=== PATIENT | male | born 1955 | race Caucasian/White ===

== ENCOUNTER 2022-01-17 08:03 | Outpatient (CLI) | payer MEDICARE, SELFPAY ==
--- NOTE | ~2022-01-17 | CT_ITS ---
EXAMINATION: CTA chest PE protocol DATE: 01/17/2022 08:41 INDICATION: Dyspnea on exertion. TECHNIQUE: Computed tomography angiography (CTA) of the chest was performed with 100 mL Omnipaque-350 intravenous contrast timed to evaluate the pulmonary arteries. Coronal maximum intensity projection 3D-reconstructions were created by the technologist. Automated exposure control and iterative reconst ruction technique were employed. The dose-length product was 579.03 mGy-cm. COMPARISON: None. FINDINGS: There is mild scarring at the lung apices. There is mild atelectasis bilaterally. A calcifi ed left lung nodule and calcified left hilar lymph nodes are consistent with old granulomatous diseas e. There are small pleural effusions. The heart size is normal. No pericardial effusion. There are co ronary artery calcifications. There is no pulmonary embolus. There is a 4.8 x 2.6 cm right paratrache al node. There is a 3.6 x 2.9 cm mass in left neck that may be a thyroid nodule or enlarged lymph nod e. Calcifications in the spleen are consistent with old granulomatous disease. There is mild splenome an. There is a benign bone island in right scapula. There are bridging endplate osteophytes at mult iple levels in the spine, consistent with diffuse idiopathic skeletal hyperostosis (DISH). There is m ild thoracic spondylosis. IMPRESSION: 1. No pulmonary embolus. 2. Enlarged right paratracheal lymph node, consistent with metastatic disease versus lymphoma. 3. Left neck mass, which may be mary metastatic disease or lymphoma or less likely a thyroid nodule. Ultrasound-guided core needle biopsy is recommended. 4. Small pleural effusions. 5. Mild splenomegaly. Reviewed, dictated and finalized at location A. IMPRESSION: 1. No pulmonary embolus. 2. Enlarged right paratracheal lymph node, consistent with metastatic disease v ersus lymphoma. 3. Left neck mass, which may be mary metastatic disease or lymphoma or less li prudencio a thyroid nodule. Ultrasound-guided core needle biopsy is recommended. 4. Small pleural effusions. 5. Mild splenomegaly.
[2022-01-17 08:36] LABS: Estimated Glomerular Filt Rate > 60
== END 2022-01-17 08:04 | disposition home or self-care (01) ==
PROVIDERS: PCP Physician Assistant; Visit Provider Physician Assistant
DX: R06.09 Other forms of dyspnea (principal); J90 Pleural effusion, not elsewhere classified; R16.1 Splenomegaly, not elsewhere classified
CPT/HCPCS: 71275; Q9967

== ENCOUNTER 2022-01-28 08:41 | Outpatient (CLI) | payer MEDICARE, SELFPAY ==
--- NOTE | 2022-01-28 | ECHO_ITS ---
Patient Info Name: Barrington Martinez Age: 66 years : 1955 Gender: Male Ht: 72 in Wt: 225 lbs BSA: 2.30 m2 HR: 65 bpm BP: 122 / 81 mmHg Technical Quality: Fair Exam Date: 01/28/2022 9:34 AM Exam Location: [facility] Patient Status: Outpatient Admit Date: 01/28/2022 Staff Ordering Physician: JahLindsay PA-C Registration Specialist: Dawit Dubon, MELANIE, RT Attending Provider: Jah, Lindsay ANDRADE Exam Type: CA echo doppler color flow Study Info Indications R06.00 - Dyspnea, unspecified Complete two-dimensional, color flow and Doppler transthoracic echocardiogram is performed. Strain analysis performed. Summary 1. Complete two-dimensional, color flow and Doppler transthoracic echocardiogram is performed. 2. Left ventricular chamber dimension is normal. 3. Left ventricular systolic function is normal, estimated at 60-65%. 4. The left ventricular diastolic function is grade I diastolic dysfunction. 5. E/e' 4 is not elevated. 6. Global longitudinal strain is normal at -19.9%. 7. There is trace mitral valve regurgitation. 8. There is mild tricuspid valve regurgitation. Left Ventricle E/e' 4 is not elevated. Global longitudinal strain is normal at -19.9%. Left ventricular chamber dimension is normal. Left ventricular systolic function is normal, estimated at 60-65%. The left ventricular diastolic function is grade I diastolic dysfunction. Right Ventricle Right ventricular systolic function is normal and with normal TAPSE 1.8 cm. Right ventricular chamber dimension is normal. Left Atria Left atrial chamber dimension is normal. Right Atria Right atrial chamber dimension is normal. Aortic Valve The aortic valve is trileaflet. There is no aortic valve stenosis. There is no aortic valve regurgitation. Pulmonic Valve There is no pulmonic regurgitation. Mitral Valve There is no mitral valve stenosis. There is trace mitral valve regurgitation. Tricuspid Valve RVSP is not calculated due to an inadequate TR jet. There is mild tricuspid valve regurgitation. Pericardium/Pleural There is no pericardial effusion. Inferior Vena Cava Normal inferior vena cava with >50% collapse upon inspiration consistent with normal right atrial pressure, 5 mmHg. Aorta The aortic root size at the sinus of Valsalva is normal. Left Ventricular Outflow Tract Name Value Normal LVOT 2D LVOT Diameter 2.0 cm LVOT Doppler LVOT Peak Gradient 4 mmHg LVOT Mean Gradient 2 mmHg LVOT VTI 19 cm LVOT VTI/AV VTI Ratio 0.8 LVOT Stroke Volume 63 ml LVOT CO 4.3 l/min LVOT CI 1.9 l/min/m2 Mitral Valve Name Value Normal MV Doppler MV Peak Grad
--- NOTE | 2022-01-28 15:48 | WPDPFTINT ---
PFT Procedure Performed PFT Procedure Performed Spirometry with Pre/Post Bronchodilator Plethysmography (Lung Vol) Diffusing Cap (DLCO) Flow Vol Loop PFT Interpretation This is a pulmonary function test with pre and post-bronchodilator spirometry, plethysmography and diffusing capacity. The test was performed and results interpreted in accordance with the 2019 and 2005 ATS/ERS Task Force guidelines respectively using the Global Lung Function Initiative-2012 reference equations. Patient demonstrated good effort and cooperation. Reproducibility criteria were met. The quality of the pre bronchodilator spirometry maneuver was Grade A and post bronchodilator spirometry maneuver was Grade A. Findings: Spirometry: The contour the inspiratory and expiratory flow tracing are normal. The pre bronchodilator FVC is 4.34 L, 94% predicted. The pre bronchodilator FEV1 is 3.16 L, 90% predicted. The pre bronchodilator FEV1: FVC ratio 73%. The post bronchodilator FVC is 4.31 L, representing 1% decrease. The post bronchodilator FEV1 is 3.36 L, representing a 6% increase. The post bronchodilator FEV1: FVC ratio 78%. Plethysmography: The total lung capacity is 6.74 L, 91% predicted. The functional residual capacity is 3.56 L, 90% predicted. The residual volume is 2.40 L, 95% predicted. Diffusion capacity: The diffusing capacity unadjusted for hemoglobin and carboxyhemoglobin is 28.9, 105% predicted. The diffusing capacity adjusted for alveolar volume is 4.78, 123% predicted. Impression: The spirometry is normal without evidence of an obstructive abnormality. There is no significant improvement after inhaling a single dose of albuterol. The lung volumes are normal. The diffusing capacity is normal. There are no prior studies for comparison
== END 2022-01-28 08:42 | disposition home or self-care (01) ==
PROVIDERS: PCP Physician Assistant; Visit Provider Physician Assistant
DX: R06.09 Other forms of dyspnea (principal)
CPT/HCPCS: 93306; 94060; 94726; 94729

== ENCOUNTER 2022-02-02 09:23 | Outpatient (CLI) | payer MEDICARE, SELFPAY ==
--- NOTE | ~2022-02-02 | US_ITS ---
EXAMINATION: US FNA w image guidance DATE: 02/02/2022 10:30 INDICATION: Left neck mass. TECHNIQUE: The procedure and its benefits and risks were discussed with the patient. Risks specifically discusse d included bleeding. The patient verbalized understanding of the risks and agreed to proceed. The nec k was prepped and draped in the usual sterile manner. 1% lidocaine was used for local anesthesia. 6 passes were made with a 25G needle into the lesion under ultrasound guidance. There were no immedia te complications. FINDINGS: Grayscale ultrasound images demonstrate needles advanced into a 3.6 cm nodule in left thyroid lobe fo r biopsy. IMPRESSION: 1. Ultrasound-guided fine needle aspiration of a left thyroid nodule. 2. I again reviewed the chest CT from 01/17/2022. The differential diagnosis for the mediastinal mass described as an enlarged lymph node also includes pericardial cyst or bronchogenic cyst. Consider ch est MRI without and with contrast to determine if this finding is cystic or solid. Reviewed, dictated and finalized at location A. IMPRESSION: 1. Ultrasound-guided fine needle aspiration of a left thyroid nodule. 2. I again reviewed the chest CT from 01/17/2022. The differential diagnosis fo r the mediastinal mass described as an enlarged lymph node also includes perica rdial cyst or bronchogenic cyst. Consider chest MRI without and with contrast t o determine if this finding is cystic or solid.
== END 2022-02-02 09:24 | disposition home or self-care (01) ==
PROVIDERS: PCP Physician Assistant; Visit Provider Physician Assistant
DX: R22.1 Localized swelling, mass and lump, neck (principal)
CPT/HCPCS: 10005; 88173; 88305

== ENCOUNTER 2022-03-22 13:30 | Outpatient (CLI) | payer MEDICARE, SELFPAY ==
--- NOTE | ~2022-03-22 | PE_ITS ---
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 11.052 mCi of 18-fluorodeoxyglucose (18-FDG) was adminis tered i.v. Low dose computed tomography (CT) images were acquired from the base of the brain to the p roximal thighs for attenuation correction and anatomic localization. Positron emission tomography (PE T) images were acquired in the same distribution beginning 53 minutes after injection. Images includi ng fused PET/CT images were reconstructed in axial, coronal, and sagittal planes. Automated exposure control technique was employed. The dose-length product was 896.07mGy-cm. COMPARISON: CT dated 01/17/2022 FINDINGS: Head/neck: There is symmetric increased activity in the oral cavity, palatine tonsils, parotid glands, submandi bular glands, laryngeal muscles and ocular muscles without CT correlate, likely physiologic. Mild inc reased FDG uptake with maximal SUV of 4.0 associated with the previously noted and recently biopsied left thyroid nodule. No pathologically enlarged cervical lymphadenopathy or suspicious foci of increa sed FDG uptake in the visualized head or neck. Chest: Tiny bilateral pleural effusions with a lateral mild dependent atelectasis. Calcified nodules in the left lung and calcified left hilar lymph nodes consistent with old granulomatous disease. Heart size is normal. Atherosclerotic coronary artery calcifications. Thoracic aorta is normal in caliber. There is a 4.6 x 2.5 cm loculated fluid collection with simple fluid attenuation situated between the post erior margin of the superior vena cava and the anterior margin of the lower trachea which corresponds to a less dense suspected to represent a lymph node. The fluid collection is now more clearly visual ized with more apparent low attenuation in the absence of the dense streak artifact present on the pr ior postcontrast study. The fluid collection extends along the right and posterior margin of the aort ic root suggesting pericardial fluid within a superior pericardial recess. This is further supported by an additional small amount of pericardial fluid within a more anterior pericardial recess which is better appreciated on the prior study extending along the anterior margin of the aortic root and keily ng the cephalad margin of the main pulmonary artery. No evident solid enhancing soft tissue component evident on the prior study or appreciable FDG activity in the current study to suggest neoplasm. No pathologically enlarged or FDG avid thoracic lymphadenopathy. Abdomen/pelvis/proximal thighs: Physiologic renal accumulation and excretion of FDG activity in the kidneys, bladder and along portio ns of ureters. Normal degree and heterogenous pattern of increased uptake throughout the liver withou t radiologic correlate or dominant FDG avid lesion. A few splenic calcifications consistent with old granulomatous disease. The gallbladder, pancreas, spleen and bilateral adrenal glands are normal. Mil d to moderate uptake scattered throughout the bowels without radiologic correlate, also likely physio logic. There is also diffuse uptake extending along a line of sutures along the deep margin of the ri ght inguinal canal likely reflecting postoperative change related to prior inguinal hernia repair. No more nodular associated soft tissue component to suggest malignancy. No other abnormal foci of incre ased FDG uptake or pathologically enlarged lymphadenopathy in the abdomen, pelvis or proximal thighs. Musculoskeletal: Moderate to severe spondylosis in the thoracic and lumbar spine. No suspicious lytic, blastic or FDG avid bone lesions. Increased uptake at the thenar muscles of the lateral hands, right greater than le ft which is likely physiologic. IMPRESSION: 1. The right paratracheal lesion of concern previously susp
[2022-03-22 13:50] LABS: Glucose Point of Care 83 mg/dl (65-105)
== END 2022-03-22 13:31 | disposition home or self-care (01) ==
LOC: ANHIMG 13:32
PROVIDERS: PCP Physician Assistant; Visit Provider Physician Assistant
DX: R22.2 Localized swelling, mass and lump, trunk (principal); D38.3 Neoplasm of uncertain behavior of mediastinum
CPT/HCPCS: 78815; A9552

== ENCOUNTER 2022-04-15 12:15 | Outpatient (CLI) | payer MEDICARE, SELFPAY ==
--- NOTE | ~2022-04-15 | US_ITS ---
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 TECHNIQUE: A time-out was performed to verify the patient's name, date of , and procedure to be performed . The procedure and its benefits and risks were discussed with the patient. Risks specifically discus sed included bleeding and infection. The patient understood the risks and agreed to proceed. The neck was prepped and draped in the usual sterile manner. 3 mL 1% lidocaine was used for local anesthesia . 6 passes were made with a 25G needle into the lesion. Appropriate needle location was documented with continuous sonographic guidance. A sterile bandage was applied. There were no immediate compli cations. FINDINGS: Grayscale ultrasound images demonstrate biopsy needles advanced into a 3.6 cm solid hypoechoic left t hyroid nodule. IMPRESSION: 1. Successful ultrasound-guided fine needle aspiration of the 3.6 cm left thyroid nodule of concern. Reviewed, dictated and finalized at location A. STEWARD IMPRESSION: 1. Successful ultrasound-guided fine needle aspiration of the 3.6 cm left thyr oid nodule of concern.
== END 2022-04-15 12:16 | disposition home or self-care (01) ==
PROVIDERS: PCP Physician Assistant; Visit Provider Physician Assistant
DX: E04.9 Nontoxic goiter, unspecified (principal)
CPT/HCPCS: 10005; 88173; 88305

== ENCOUNTER 2023-06-21 02:02 | Day surgery (SDC) | payer MEDICARE, SELFPAY ==
[2023-05-30 10:41] VITALS: BMI 29.9
--- NOTE | 2023-06-19 10:32 | PC.NURSE ---
Patient called regarding upcoming procedure. Reviewed preop instructions, appointment times, and procedure prep.
[2023-06-21 07:31] VITALS: BP 110/67; PULSE 100; RESP 16; TEMP 36.2; O2SAT 98
[2023-06-21] MEDS: LACTATED RINGERS 1,000 ML 150 ML IV CONT (07:41)
--- NOTE | 2023-06-21 07:43 | P.PNAN_ITS ---
Anes - Initial Pre Proc Eval Procedure: Operation Date: 06/21/23 08:30 Proposed Procedures p Colonoscopy - Jorge Coulter MD Date/Time: 06/21/23 07:43 Surgeon: Jorge Coulter MD Pre Op Diagnosis: Family History of Colon Cancer Patient Data Age: 68 Gender: M Height: 1.83 m Weight: 96.8 kg Last Vital Signs Temp 36.2 C L 06/21/23 07:31 Pulse 100 06/21/23 07:31 Resp 16 06/21/23 07:31 BP 110/67 06/21/23 07:31 Pulse Ox 98 06/21/23 07:31 O2 Del Method Room Air 06/21/23 07:31 Allergies Allergy/AdvReac Type Severity Reaction Status Date / Time No Known Allergies Allergy Verified 06/21/23 07:29 Home Medications Medication Instructions Recorded Confirmed Type doxazosin 8 mg tablet See Rx Instructions .Route 11/27/19 06/21/23 Rx .COMPLEX #90 tabs Patient hx anesthesia problems: none Family hx anesthesia problems: none Results Review: All pre-operative results and documents have been reviewed as part of the pre- operative evaluation. [facility] Past Medical History Medical History (Updated 06/21/23 @ 07:43 by Abbe Jones MD) Hyperlipidemia Family History Family History Father Carcinoma of colon Social History Social History Smoking status: Never smoker Smoking end date: 04/24/71 Alcohol intake: never Living arrangements: with family Spiritual care concerns: No Anes - Eval Final PreProcedure Day of Procedure 06/21/23 07:43 Patient weight: overweight Heart: regular rate and rhythm Lungs: clear to auscultation Airway: Mallampati scale class II Neurological: alert and oriented Last oral intake: >/= 8 hours ASA classification: II Emergent: no Anesthetic plan: proceed Anesthesia type and monitoring: general GIVS and standard monitoring Results Review: All pre-operative results and documents have been reviewed as part of the pre- operative evaluation. Informed Consent: The patient's anesthetic plan and its attendant risks and benefits were discussed with the patient/family/POA. Questions were solicited and answers provided to the satisfaction of the patient/family/POA.
[2023-06-21] MEDS: SIMETHICONE ORAL SUSPENSION 20 MG/0.3 ML 30 ML BOTTLE 0.6 ML IRRIGATION (08:32)
[2023-06-21 08:39] VITALS: BP 112/71; PULSE 78; RESP 22; O2SAT 97
[2023-06-21 08:49] VITALS: BP 115/71; PULSE 73; RESP 18; O2SAT 97
[2023-06-21 08:57] VITALS: BP 117/73; PULSE 72; RESP 19; O2SAT 98
--- NOTE | 2023-06-22 14:13 | PM.HPGS ---
History of Present Illness History of Present Illness Consent: Risks, benefits, and alternatives have been discussed and questions answered. Patient agrees to proceed with procedure. Chief complaint: Family History of Colon Cancer Narrative: Barrington Martinez is a 68 year old male referred for colon cancer screening. He has a family history of colon cancer. Review of Systems Review of Systems: All systems reviewed & are unremarkable except as noted in HPI and below PMFSH Past Medical History Medical History Hyperlipidemia Family History Family History Father Carcinoma of colon Social History Social History Smoking status: Never smoker Smoking end date: 04/24/71 Alcohol intake: never Living arrangements: with family Spiritual care concerns: No Meds Home Medications and Allergies Home Medications Medication Instructions Recorded Confirmed Type doxazosin 8 mg tablet See Rx Instructions .Route 11/27/19 06/21/23 Rx .COMPLEX #90 tabs Allergies Allergy/AdvReac Type Severity Reaction Status Date / Time No Known Allergies Allergy Verified 06/21/23 07:29 Exam Const: General: alert Orientation/consciousness: patient oriented x3 Resp: Auscultation: clear to auscultation bilaterally Cardio: Rhythm: regular rhythm GI: GI Palp: Yes Soft to palpation and No Tenderness to palpation present (GI) Neuro: General: patient oriented x3 Assessment and Plan Assessment and plan (1) Family history of colon cancer: Code(s): Z80.0 - Family history of malignant neoplasm of digestive organs Status: Acute Assessment and Plan: Colonoscopy with possible biopsy or polypectomy or cautery or injection of substances.
== END 2023-06-21 09:06 | disposition home or self-care (01) ==
PROVIDERS: PCP Physician Assistant; Visit Provider Internal Medicine Gastroenterology
PROC: 0DJD8ZZ Inspection of Lower Intestinal Tract, Via Natural or Artificial Opening Endoscopic (ICD-10-PCS; CPT 45378; principal; 2023-06-21 08:30)
DX: Z12.11 Encounter for screening for malignant neoplasm of colon (principal); Z80.0 Family history of malignant neoplasm of digestive organs; K64.8 Other hemorrhoids; E78.5 Hyperlipidemia, unspecified
CPT/HCPCS: G0105; J2704; J7120

== ENCOUNTER 2024-09-26 07:30 | Outpatient (CLI) | payer MEDICARE, SELFPAY ==
--- NOTE | 2024-09-26 | EST_ITS ---
Patient Info Name: Barrington Martinez Age: 69 years : 1955 Gender: Male Ht: 72 in Wt: 215 lbs BSA: 2.25 m2 Exam Date: 09/26/2024 7:50 AM Patient Status: O Admit Date: 09/26/2024 Exam Type: CA stress devendra w NM A regadenoson stress test was performed. Staff Referring Physician: Lindsay Tyson Attending Provider: Lindsay Tyson Exercise Technologist: Giuliana Castro Exercise Physician: Kishan Musa DO Summary 1. 1. Negative lexiscan stress test for ischemic ST changes by ECG criteria. 2. 2. Stable hemodynamics throughout the test. 3. 3. Nuclear scan to follow and will be reported separately. Please correlate with it. 4. 4. Patient informed of the above results. Protocol: Lexiscan Stress ECG Details Stage: REST Duration (min): 1 min : 29 sec HR (bpm): 55 SBP (mmHg): 112 DBP (mmHg): 71 Stage: REST Duration (min): 5 min : 2 sec HR (bpm): 56 SBP (mmHg): 112 DBP (mmHg): 71 Stage: STAGE 1 Duration (min): 1 min : 0 sec HR (bpm): 62 SBP (mmHg): 131 DBP (mmHg): 71 Stage: RECOVERY Duration (min): 1 min : 0 sec HR (bpm): 90 SBP (mmHg): 114 DBP (mmHg): 53 Stage: RECOVERY Duration (min): 2 min : 0 sec HR (bpm): 88 SBP (mmHg): 114 DBP (mmHg): 53 Stage: RECOVERY Duration (min): 3 min : 0 sec HR (bpm): 83 SBP (mmHg): 114 DBP (mmHg): 55 Stage: RECOVERY Duration (min): 3 min : 2 sec HR (bpm): 83 SBP (mmHg): 114 DBP (mmHg): 55 Rest HR: 56 bpm Peak HR: 93 bpm Rest Sys BP: 112 mmHg Peak Sys BP: 131 mmHg Max Pred HR: 149 bpm % Max Pred HR: 62 % Target HR: 127 bpm Max RPP: 12,183 bpm*mmHg Termination Reason: Completed protocol Cardiac Symptoms: None Total Time: 1 min : 0 sec Rest Jefferson BP: 71 mmHg Peak Jefferson BP: 71 mmHg Total Dose: 0.4 mg Resting ECG Sinus bradycardia. Stress ECG No ST changes. Arrhythmias None. Report Signatures
--- NOTE | ~2024-09-26 | NM_ITS ---
EXAMINATION: NM devendra stress w perfusion DATE: 09/26/2024 10:03 INDICATION: Dyspnea on exertion TECHNIQUE: Rest images were obtained following intravenous administration of 10.8 mCi Tc99m tetrofosm in (Myoview). The patient was infused intravenously with Lexiscan (Regadenoson). Then, 31.7 mCi Tc99m tetrofosmin (Myoview) was administered intravenously, and stress images were obtained. Data was trupti nstructed into short axis and horizontal and vertical long axis SPECT images. Gated SPECT images were also obtained. COMPARISON: None. FINDINGS: There is no definite reversible or fixed perfusion abnormality to suggest ischemia or infar ction. There is normal left ventricular chamber size, wall motion and ejection fraction. Left ventr icular ejection fraction measures 67%. IMPRESSION: 1. Normal myocardial perfusion at rest and during stress. 2. Left ventricular ejection fraction measuring 67%. Reviewed, dictated and finalized at location A.
--- OUTSIDE RECORDS SUMMARY | 2024-09-26 07:33 | XMS_ITS | Encounter Summary ---
Author Organization [facility] Address [address] [place] [address] Care Team Providers Care Water Resource Project Manager Name Role Phone Lindsay Matute Primary Care Pr ovider Encounter Details Date Type Department Care Team (Late Contact Info) Description 12/02/2020 Ophth Exam [facility] [address] [place] [address] [phone] Marybel Amador MD [address] [place] [address] [place] [address] Social History Tobacco Use Types Packs/Day Years Used Date Smoking Tobacco: Never Smokeless Tobacco: Never Alcohol Use Standard Drinks/Week Comments Not Currently 0 (1 standard drink = 0.6 oz pur e alcohol) Sex and Gender Information Value Date Recorded Sex Assigned at Not on file Legal Sex Male 11:39 AM CDT Gender Identity Not on file Sexual Orientation Not on file documented as of this encounter Plan of Treatment Upcoming Encounters Date Type Department Care Team (Late Contact Info) Description 12/04/2024 8:40 AM CDT Office Visit [facility] - [facility]hthalmology [address] [place] [address] [phone] Azael Ceballos MD [address] [place] [phone] 06/16/2025 9:00 AM EXTRUDING PRESS ADJUSTER Office Visit [facility] [place] [address] Marybel Amador MD [facility] [facility] [place] [address] documented as of this encounter Visit Diagnoses Not on filedocumented in this encounter Care Teams Water Resource Project Manager Relationship Specialty Start Date End Date Lindsay Matute PA [address] [place] [address] PCP - General Physician Files Supervisor 12/02/20 documented as of this encounter
--- OUTSIDE RECORDS SUMMARY | 2024-09-26 07:33 | XMS_ITS | Referral Summary ---
Author Organization [facility] [place] [address] [facility] [address] [place] [address] Care Team Providers Care Retail Service Representative Name Role Phone Lindsay Tyson Primary Care Pr ovider Allergies No known active allergies Medications No known medications Active Problems No known active problems Social History Tobacco Use Types Packs/Day Years Used Date Smoking Tobacco: Never Assessed Sex and Gender Information Value Date Recorded Sex Assigned at Not on file Legal Sex Male 1:15 AM PAINT MAKER Gender Identity Not on file Sexual Orientation Not on file Last Filed Vital Signs Vital Sign Reading Time Taken Comments Blood Pressure 120/72 05/04/2023 9:06 AM PAINT MAKER Pulse 80 05/04/2023 9:06 AM PAINT MAKER Temperature 36.3 C (97.4 F) 05/04/2023 9:06 AM PAINT MAKER Respiratory Rate 21 05/04/2023 9:06 AM PAINT MAKER Oxygen Saturation 96% 05/04/2023 9:06 AM PAINT MAKER Inhaled Oxygen Concentration - - Weight 104.3 kg (230 lb) 05/04/2023 9:06 AM PAINT MAKER Height 182.9 cm (6') 07/23/2022 2:07 PM CDT Body Mass Index 31.19 07/23/2022 2:07 PM CDT Plan of Treatment Not on file Insurance [employer] MEDICARE Care Teams Retail Service Representative Relationship Specialty Start Date End Date Lindsay Tyson PA PCP - General Physician Assistant Import Manager 05/28/20
--- OUTSIDE RECORDS SUMMARY | 2024-09-26 07:33 | XMS_ITS | Encounter Summary ---
Author Organization [facility] Address [address] [place] [address] Care Team Providers Care Garbage Man Name Role Phone Lindsay Matute Primary Care Pr ovider Encounter Details Date Type Department Care Team (Late Contact Info) Description 12/02/2020 Evaluation Visit [facility] [address] [place] [address] [phone] Aric Caicedo MD [address] [place] [address] [place] [address] Right retinal detachment Social History Tobacco Use Types Packs/Day Years [...] Office Visit [facility] - [facility]hthalmology [address] [place] [address] [phone] Azael Ceballos MD [address] [place] [phone] 06/16/2025 9:00 AM JIGMAN Office Visit [facility] [place] [phone] Marybel Amador MD [address] [place] [address] [place] [phone] Scheduled Orders Name Type Priority Associated Diagnoses Orde r Schedule OPH OCT TEST U Ophthalmology Routine Right retinal detachment Ordered: 12/02/2020 documented as of this encounter Visit Diagnoses Diagnosis Right retinal detachment- Primary Unspecified retinal detachment documented in this encounter Care Teams Garbage Man Relationship Specialty Start Date End Date Lindsay Matute PA [address] [place] [phone] PCP - General Physician Steward/Stewardess Second Class 12/02/20 documented as of this encounter
--- OUTSIDE RECORDS SUMMARY | 2024-09-26 07:33 | XMS_ITS | Clinical Summary ---
Author Organization [facility] [address] Address [address] [place] [address] Care Team Providers Care Net Sql Developer Name Role Phone Lindsay Tyson Primary Care Pr ovider Allergies No known active allergies Medications No known medications Active Problems No known active problems Family History Medical History Relation Name Comments Colon cancer Father Colon cancer - (Added by TW Conv) Relation Name Status Comments Father Social History Tobacco Use Types Packs/Day Years Used Date Smoking Tobacco: Never Assessed Sex and Gender Information Value Date Recorded Sex Assigned at Not on file Legal Sex 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 Gender Identity Not on file Sexual Orientation Not on file Obstetrics History Last Filed Vital Signs Vital Sign Reading Time Taken Comments Blood Pressure 120/72 05/04/2023 9:06 AM CASING WRINGER OPERATOR Pulse 80 05/04/2023 9:06 AM CASING WRINGER OPERATOR Temperature 36.3 C (97.4 F) 05/04/2023 9:06 AM CASING WRINGER OPERATOR Respiratory Rate 21 05/04/2023 9:06 AM CASING WRINGER OPERATOR Oxygen Saturation 96% 05/04/2023 9:06 AM CASING WRINGER OPERATOR Inhaled Oxygen Concentration - - Weight 104.3 kg (230 lb) 05/04/2023 9:06 AM CASING WRINGER OPERATOR Height 182.9 cm (6') 07/23/2022 2:07 PM CDT Body Mass Index 31.19 07/23/2022 2:07 PM CDT Plan of Treatment Health Maintenance Due Date Last Done Comments Colon Cancer Screening-Colonoscopy 1955 Depression Screening 1953 Fall Risk Assessment 1955 Hepatitis C Screening 1953 Hepatitis B Screening 1971 Pneumococcal vaccine 65+ (1 of 1 - PCV) 2003 Zoster Vaccine (1 of 2) 2003 Abdominal Aortic Aneurysm (A AA) Screen 2018 Well Visit 65+ 2018 DTaP/Tdap/Td Vaccine (2 - Td or Tdap) 12/05/2024 Influenza Vaccine (Season Ended) 2024 02/16/2018, 02/20/2016, 02/20/2015 Insurance AETNA MEDICARE Care Teams Net Sql Developer Relationship Specialty Start Date End Date Lindsay Tyson PA PCP - General Physician Director Volunteer Services 05/28/20
--- OUTSIDE RECORDS SUMMARY | 2024-09-26 07:33 | XMS_ITS | Clinical Summary ---
Author Organization [facility] Address [address] [place] [address] Care Team Providers Care Information Systems Director Name Role Phone Lindsay Matute Primary Care Pr ovider Source Comments [facility],non-owned Affiliates and Associated Physician Practices is amultiple site organization consisting of ambulatory clinics and hospital sitesin [place], [place] and [place]. This disclosure is being madepursuant to the Care Everywhere program and may not contain all information available regarding this patient. Last updated 18.[facility] Allergies No known active allergies Medications * Be aware that medications may not be up to date on this document. Alwaysverify current medications with the patient. doxazosin (CARDURA) 8 MG tablet Take 1 (one) tablet by mouth once daily 09/17/2020 Active finasteride (Proscar) 5 MG tablet Take 1 (one) tablet by mouth once daily 05/16/2024 Active dorzolamide-angeliac olol (Cosopt) 2-0.5 % ophthalmic solution Instill 1 (one) drop into right eye 2 times daily 30 mL 4 06/10/2024 Active Active Problems Problem Noted Date Diagnosed Date Secondary open-angle glaucoma, moderate stage, r ight 04/07/2023 Overview (04/07/2023): Patient with history of multiple retina procedures including silicone oil with observation of elevated intraocular pressure with silicone oil entering the anterior chamber the right eye. Intraocular pressure has decreased significantly after silicone oil removal but still higher than the left eye despite medications on the right. Visual field changes and OCT could suggest moderate glaucoma damage versus changes from retinal detachment and prior surgeries and we are assigning a presumptive diagnosis of moderate damage at baseline. Gonioscopy both eyes shows wide open angle with 1-2+ trabecular meshwork pigmentation. There is visible residual microscopic silicone oil bubbles in the superior angle of the right eye which could be causing continued obstruction of outflow on a microscopic level. Nonetheless, the patient may benefit from laser trabeculoplasty to reduce intraocular pressure further especially with patient with difficult adherence to multiple medications frequently throughout the day. 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 Status post eye surgery Family History Medical History Relation Name Comments Cancer - Colon Father Relation Name Status Comments Father Social History [...] Sign Reading Time Taken Comments Blood Pressure 105/78 01/14/2021 1:05 PM CDT Pulse 72 01/14/2021 1:05 PM CDT Temperature 36.1 C (97 F) 01/14/2021 1:05 PM CDT Respiratory Rate 18 01/14/2021 1:05 PM CDT Oxygen Saturation 100% 01/14/2021 1:05 PM CDT Inhaled Oxygen Concentration - - Weight 102.5 kg (226 lb) 01/14/2021 9:06 AM CDT Height 182.9 cm (6') 01/14/2021 9:06 AM CDT Body Mass Index 30.65 01/14/2021 9:06 AM CDT Plan of Treatment Upcoming Encounters Date Type Department Care Team (Late st Contact Info) Description 12/04/2024 8:40 AM CDT Office Visit [facility] - Ophthalmology [address] [place] [phone] Azael Ceballos MD [address] [place] [phone] 06/16/2025 9:00 AM WOOD FENCE INSTALLER Office Visit [facility] - Ophthalmology [address] [place] [phone] Marybel Amador MD [address] [place] [address] [place] [phone] Health Maintenance Due Date Last Done Comments COLOGUARD (AGES 45-75) - COL ON CA SCREENING 1953 COLON MONITORING 1953 COLONOSCOPY - COLON CA SCREENING 1953 CT COLONOGRAPHY - COLON CA SCREENING 1953 Colorectal Cancer Screening 1953 FIT - COLON CA SCREENING 1953 FLEX SIG - COLON CA SCREENING 1953 LIPID TESTING 1953 HEPATITIS C SCREENING 04/24/1971 DTAP/TDAP/TD VACCINES (1 - Tdap) 1972 PNEUMOCOCCAL VACCINE 50+ (1 of 1 - PCV) 2003 ZOSTER VACCINE (1 of 2) 2003 COVID-19 VACCINE ( - 2023-2 5 season) 2023 DEPRESSION SCREENING 04/24/2024 MEDICARE AWV CALENDAR YEAR 2024 INFLUENZA VACCINE (Season Ended) 2024 Respiratory Syncytial Virus (RSV) Vaccine Pt: or over 60 yrs (1 - 1-dose 75+ series) 2028 HEPATITIS B VACCINE Aged Out No longe r eligible based on patient's age to complete this topic HIB VACCINE Aged Out No longer eligi ble based on patient's age to complete this topic HPV VACCINE Aged Out No longer eligi ble based on patient's age to complete this topic MENINGOCOCCAL (Group B) VACC INE SHARED DECISION-MAKING Aged Out No longer eligibl e based on patient's age to complete this topic MENINGOCOCCAL GROUPS A/C/Y/W VACCINE Aged Out No longer eligible b ased on patient's age to complete this topic Medical Devices Implanted Type Area Dockmaster Device Identifier Shelf Expiration Date Model / Serial / Lot Lens Iol 0 D +16.5 Mingo Mod L Bcnvx - [id number] Implanted:Qty: 1 on 12/22/2020 by Greg Tim MD at [facility] Right: Eye RunTitle 02/11/2025 [id number] / [id number] / Strip Sclr 4mm Chelsy Strl Implanted:Qty: 1 on 12/24/2020 by Marybel Amador MD at [facility] Right: Eye [employer] 12/22/2024 92-10 / / [id number] Slv Rtnl 70mm 2.1mm 1mm Chelsy Rnd Strl Implanted:Qty: 1 on 12/24/2020 by Marybel Amador MD at [facility] Right: Eye [employer] 06/21/2024 92-13 / / [id number] Insurance AETNA [facility] Care Address: [facility] [id number] [place] [phone] AETNA MEDICARE ADV AETNA Care Teams Information Systems Director Relationship Specialty Start Date End Date Lindsay Matute PA [address] [place] [address] PCP - General Physician Demand Planning Manager 12/02/20
--- OUTSIDE RECORDS SUMMARY | 2024-09-26 07:33 | XMS_ITS | Data Portability ---
Author Organization [facility] [facility], Main Office Address [address] [place] [address] Assessment No assessment recorded. Plan of Treatment Reminders Order Date Submit Date Provider Last Modified By Organization Details Last Modified Time Details Appointments None recorded. Lab PSA, serum or plasma 2022 023 [email or web address] Not available 16:21:58 CBC w/ auto diff 2022 023 [email or web address] Not available 16:21:25 hepatic function panel, serum 2022 023 [email or web address] Not available 16:21:34 BMP, serum or plasma 2022 023 [email or web address] Not available 16:21:45 TSH + free T4, serum 2022 023 RIOS Not available 16:13:42 lipid panel, serum 2022 023 [email or web address] Not available 16:21:15 urinalysis, complete 2022 023 [email or web address] Not available 16:22:08 Referral None recorded. Procedures colonoscopy screening (PROC) 2022 023 [email or web address] [facility], [address], [address], [place], [address], 10:54:22 Surgeries None recorded. Imaging None recorded. Medication Orders doxazosin 8 mg tablet 2022 023 [id number], [address] [place], [place], [phone], 15:20:05 Patient TargetsNo targets recorded. Patient InstructionsNo instructions recorded. Reason for Referral None Reported. Results Created Date Observation Date Name Description Value Unit Range Abnormal Flag Note LastModifiedBy Organization Detail LastModifiedTime 01/19/20 22 01/17/2022 CT, angio gram, chest , w/ contr ast No observ ation record ed. MIGRATION. [address] [place] [address] (Imaging) [address] [place] [address], [phone], 06/22/2022 21:33:52 02/03/20 22 02/02/2022 ultra sound guide d core biops y (PROC ) No observ ation record ed. MIGRATION. [address] [place] [address] ([facility]) [address] [place] [address], [phone], 06/22/2022 21:33:52 02/04/20 22 01/28/2022 compl ete PFT w/ post [facility] hodil ator orin metry * No observ ation record ed. MIGRATION. [address] [place] [address] [facility] [place] [address] [place], [address], 06/22/2022 21:33:52 02/08/20 22 01/28/2022 , [facility] ardio gram, trans thora cic, compl ete, w/ color flow No observ ation record ed. MIGRATION. [address] [place] [address], [address], 06/22/2022 21:33:52 02/12/20 22 02/02/2022 ultra sound guide d core biops y (PROC ) No observ ation record ed. MIGRATION. [address] [place] [address] (Imaging) [address] [place] [address], [phone], 06/22/2022 21:33:52 04/04/20 22 03/22/2022 PET-C T, skull base to mid-t high scan No observ ation record ed. [email or web address].[id number] [facility] (Imaging) [address], [place], [address], 06/22/2022 21:33:52 04/19/20 22 04/15/2022 ultra sound guide d core biops y (PROC ) No observ ation record ed. [email or web address].[id number] [facility] (Imaging) [address], [place], [address], 06/22/2022 21:33:52 Result Notes None recorded. Problems Name Problem SNOMED Code Status Onset Date Resolution Date Notes Provider Name and Address Organization Details Recorded Time Nocturia 270732845 Active 2021 Not Available [facility] 3 21:31:55 Acquired bronchogen ic cyst 6717888615776 02 Active 2021 Not Available [facility] 3 21:31:56 Diabetes mellitus screening Active 2021 Not Available [facility] 3 21:31:56 Mass of thyroid gland 186162808 Active 2021 Not Available [facility] 3 21:31:56 Long-term drug therapy Active 2021 Not Available [facility] 3 21:31:56 Mass of neck 007408884 Active 2021 Not Available [facility] 3 21:31:56 Screening for malignant neoplasm of prostate Active 2021 Not Available [facility] 3 21:31:56 Hyperlipid emia 44788080 Active 2021 MATTHEW Gutierrez null, [place] - [facility] 3 12:20:25 Dyspnea on exertion 13357558 Active 2021 Not Available [facility] 3 21:31:57 Mediastina l mass 67863456 Active 2021 Not Available [facility] 3 21:31:57 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 Procedures Surgical History Date Name Laterality Status Provider Name and Address Organization Details Recorded Time Colonoscopy completed Not Available [facility] 06/23/19 23 21:30:41 stapedectomy completed Not Available [facility] 06/22/2022 21:30:41 hernia repair completed Not Available [facility] th 06/22/2022 21:30:41 Imaging Results None recorded. Procedure Notes None recorded. Medical Equipment None Reported. Allergies No known drug allergies Medications Name Sig Start Date Stop Date Status Note LastModified by Organization Details LastModified Time amoxicillin 500 mg capsule TAKE 1 CAPSULE BY MOUTH THREE TIMES DAILY UNTIL ALL TAKEN 06/22 completed Not Available Not Available Not Available azithromycin 250 mg tablet TAKE 2 TABLETS BY MOUTH FOR 1 DAY THEN TAKE 1 TABLET BY MOUTH DAILY FOR 4 DAYS 01/27 completed Not Available Not Available Not Available prednisone 20 mg tablet 01/27 completed Not Available Not Available Not Available acetazolamid e 250 mg tablet TAKE 1 TABLET BY MOUTH THREE TIMES DAILY 01/05 completed Not Available Not Available Not Available peg-electrol yte solution 420 gram oral solution MIX AND DRINK UTD 05/08 completed Not Available Not Available Not Available ketorolac 0.5 % eye drops INSTILL 1 DROP IN RIGHT EYE THREE TIMES DAILY 01/05 completed Not Available Not Available Not Available doxazosin 8 mg tablet TAKE 1 TABLET BY MOUTH EVERY DAY active Not Available Not Available No t Available prednisolone acetate 1 % eye drops,suspen tuan SHAKE LIQUID AND INSTILL 1 DROP IN RIGHT EYE FOUR TIMES DAILY 01/05 completed Not Available Not Available Not Available dorzolamide 22.3 mg-timolol 6.8 mg/mL eye drops INSTILL 1 DROP IN RIGHT EYE TWICE DAILY active Not Available Not Available No t Available finasteride 5 mg tablet TK 1 T PO QD 05/08 completed Not Available Not Available Not Available Vitals Date Recorded Body mass index (BMI) Body height Oxygen saturation Oxygen saturation in Arterial blood by Pulse oximetry Heart rate Respiratory rate Body temperature Body weight Systolic blood pressure Diastolic blood pressure Provider Name and Address Organization Details Last Updated DateTime 2 32.2 kg/m2 182.88 cm 97.03 % 97.03 % 96 /min 16 /min 97.7 [degF] 494962. 11 g 110 mm[Hg] 70 mm[Hg] Not Available [facility] 3 21:31:37 Date Recorded Body height Oxygen saturation Oxygen saturation in Arterial blood by Pulse oximetry Heart rate Respiratory rate Body temperature Body weight Systolic blood pressure Diastolic blood pressure Provider Name and Address Organization Details Last Updated DateTime 2 182.88 cm 97 % 97 % 83 /min 18 /min 97.3 [degF] 154198. 91 g 118 mm[Hg] 68 mm[Hg] Not Available [facility] 3 21:31:37 Date Recorded Body weight Body mass index (BMI) Body height Body temperature Heart rate Oxygen saturation Oxygen saturation in Arterial blood by Pulse oximetry Systolic blood pressure Diastolic blood pressure Provider Name and Address Organization Details Last Updated DateTime 3 000150. 25 g 31.2 kg/m2 182.88 cm 97.4 [degF] 84 /min 97 % 97 % 118 mm[Hg] 70 mm[Hg] Neyda Randall RN [place] - [facility] 3 15:01:20 Social History Question Answer Notes LastModified by Organizat ion Details LastModified Time Tobacco Smoking Status Never Smoker Not Available [facility] 06/22/2022 21:30:30 Do You Have An Advance Directive? No [id number] Information not available 06/22/2022 Do You Wear A Helmet When Biking? Yes MIGRATION. 68035 Information not available 06/22/2022 Are You Blind Or Do You Have Difficulty Seeing? Yes MIGRATION. 25588 Information not available 06/22/2022 What Is Your Level Of Caffeine Consumption? None MIGRATION. 73357 Information not available 06/22/2022 In The 14 Days Before Symptom Onset, Have You Had Close Contact With A Laboratory-confir med COVID-19 While That Case Was Ill? No MIGRATION. 34912 Information not available 06/22/2022 In The 14 Days Before Symptom Onset, Have You Had Close Contact With A Person Who Is Under Investigation For COVID-19 While That Person Was Ill? No MIGRATION.85137 [id number] Information not available 06/22/2022 Are You Deaf Or Do You Have Serious Difficulty Hearing? Yes MIGRATION.34581 09601 Information not available 06/22/2022 What Type Of Diet Are You Following? REGULAR MIGRATION.49982 98023 Information not available 06/22/2022 Have There Been Any Changes To Your Family Or Social Situation? No MIGRATION.02433 53715 Information not available 06/22/2022 Are There Any Guns Present In Your Home? Yes MIGRATION.35517 52133 Information not available 06/22/2022 Do You Use Insect Repellent Routinely? No MIGRATION.20331 91345 Information not available 06/22/2022 Where Do You Live? [place] MIGRATION.38101 91200 Information not available 06/22/2022 Do You Have A Medical Power Of Hand Stapler? No MIGRATION.07361 10072 Information not available 06/22/2022 Do You Have Any Pets? Yes MIGRATION.92405 96030 Information not available 06/22/2022 What Is Your Relationship Status? MIGRATION.80126 70978 Information not available 06/22/2022 Do You Use Your Seat Belt Or Car Seat Routinely? Yes MIGRATION.10264 26424 Information not available 06/22/2022 Do You Have Smoke And Carbon Monoxide Detectors In Your Home? Yes MIGRATION.17392 02364 Information not available 06/22/2022 Are You Passively Exposed To Smoke? No MIGRATION.60962 44939 Information not available 06/22/2022 Are There Any Smokers In Your House? No MIGRATION.48307 91884 Information not available 06/22/2022 Do You Use Sunscreen Routinely? No MIGRATION.22258 80423 Information not available 06/22/2022 Has Tobacco Cessation Counseling Been Provided? No MIGRATION.76059 39153 Information not available 06/22/2022 Have You Recently Traveled Abroad? No MIGRATION.34054 18262 Information not available 06/22/2022 Do You Have Difficulty Walking Or Climbing Stairs? No MIGRATION.68157 80539 Information not available 06/22/2022 Do You Have Any Dietary Restrictions? No MIGRATION.27030 69048 Information not available 06/22/2022 Sex: Unknown Functional Status Question Answer Note LastModified by Organizat ion Details LastModified Time Do you use any illicit or recreational drugs? No MIGRATION.[id number] 026 Information not available 06/22/2022 Do you or have you ever used any other forms of tobacco or nicotine? No MIGRATION.[id number] 026 Information not available 06/22/2022 What is your level of alcohol consumption? None MIGRATION.[id number] 026 Information not available 06/22/2022 Do you have transportation difficulties? No MIGRATION.3238110 026 Information not available 06/22/2022 Are you able to walk? YESWOREST MIGRATION.4150351 026 Information not available 06/22/2022 Do you have difficulty doing errands alone? No MIGRATION.[id number] 026 Information not available 06/22/2022 Are you able to care for yourself? Yes MIGRATION.4371937 026 Information not available 06/22/2022 Do you have difficulty dressing or bathing? No MIGRATION.[id number] 026 Information not available 06/22/2022 What is your exercise level? Occasional MIGRATION.[id number] 026 Information not available 06/22/2022 Mental Status Question Answer Note LastModified by Organizat ion Details LastModified Time Do you feel stressed (tense, restless, nervous, or anxious, or unable to sleep at night)? [id number] MIGRATION.[id number] 26 Information not available 06/22/2022 Do you have difficulty concentrating, remembering or making decisions? No MIGRATION.[id number] 26 Information not available 06/22/2022 Family History Relationship Description Onset Age of this Age Resolved Age Notes LastModified by Organization Details LastModified Time Father Malignant tumor of colon [id number] Not available 06/22/2022 21:30:43 Medical History Condition Response EYE PROBLEMS Y URINARY/BLADDER/KIDNEY PROBLEMS Y BACK / NECK PROBLEMS Y Past Encounters Encounter ID Performer Location Encounter Start Date Encounter Closed Date Diagnosis/Indication Diagnosis SNOMED-CT Code Diagnosis ICD10 Code Diagnosis Note [id number] NOLVIA Lafleur [facility] [address] [place] [address] 06/23/2021 00:00:00 07/22/2021 18:29:08 [id number] NOLVIA Lafleur [facility] [address] [place] [address] 01/05/2022 00:00:00 01/20/2022 19:17:19 [id number] NOLVIA Lafleur [facility] [address] [place] [address] 01/30/2023 14:40:19 01/30/2023 15:23:20 Benign prostatic hyperplasia 840771884 N40.1 refill doxazosin 8mg qhs. check UA Hyperlipidemia 50481349 E78.5 hx of dietary management . due for fasting lipids. Long-term drug therapy 904668800 Z79.899 routine cbc, bmp lft , tfs due Screening for malignant neoplasm of prostate 206560791 Z12.5 annual psa due Screening for malignant neoplasm of colon 948035066 Z12.11 pt is due for colonoscop y screening. Adult heal th examination 284345976 Z00.01 annual wellness completed Health Concerns Section Related Observation LastModified by Organization Detai ls LastModified Time None Recorded Concern Status LastModified by Organization Details LastModified Time None Recorded Advance Directives Directive N: Payers Encounter Date Sequence Insurance Name Policy Number Policy Summers Covered Member ID Summers Member ID Guarantor Name 01/30/2023 1 [employer] (PPO) [id number] 1 Barrington Martinez [id number] Barrington Martinez Notes Date Note Type Note Provider Name and Address Organization Details Recorded Time 2 text/html Generic HPI TemplateReported bypatient.Notes:Pt is here for his Medicare Wellness. - Eye Exams are UTD- Last dental visit with 1 year ago - Colonoscopy: UTD - done 3 years ago, repeat in 5 years - Denies FHx of Prostate Cancer or elevated PSA Not Available [employer] 07/22/2021 18:29:08 2 text/html Generic HPI TemplateReported bypatient.Notes:pt presents today for complaints of shortness of breath. worsens with exercise. has gradually gotten worse. some dizziness/light headed Not Available [employer] 01/20/2022 19:17:19 3 text/html HyperlipidemiaReported bypatient.Duration:chronic Control:usually well controlled; improving; at goal Compliance:compliant; compliant with diet; exercises Complications:no coronary artery disease; no peripheral artery disease; no cardiovascular disease wellness NOLVIA Lafleur [address] [place] [address], [facility] [address], [place], [address], [place] - [facility] 02/21/2023 21:55:26
--- OUTSIDE RECORDS SUMMARY | 2024-09-26 07:33 | XMS_ITS | Data Portability ---
Author Organization [facility] KIRILLRadha Address [address] [place] [address] Care Team Providers Care Core Winder Name Role Phone SHARRI LEO Primary Care Provider Unavailab le Assessment No assessment recorded. Plan of Treatment Reminders Order Date Submit Date Provider Last Modified By Organization Details Last Modified Time Details Appointments ANY 15 2024 10:00A M NOLVIA Lafleur Not available Not available Not available Lab BMP, serum or plasma 2024 025 [email or web address] [facility], [address] [place] [address], [id number], 08/29/2024 11:21:43 hepatic function panel, serum 2024 025 [email or web address] [facility], [address] [place] [address], [id number], 08/29/2024 11:21:43 CBC w/ auto diff 2024 025 [email or web address] [facility], [address] [place] [address], [id number], 08/29/2024 11:21:43 TSH + free T4, serum 2024 025 [email or web address] [facility], [address] [place] [address], [id number], 08/29/2024 11:21:43 HbA1c (hemoglob in A1c), blood 2024 025 [email or web address] [facility], [address] [place] [address], [place], [address], 08/29/2024 11:21:43 lipid panel, serum 2024 025 [email or web address] [facility], [address] [place] [address], [place], [address], 08/29/2024 11:21:43 lipid panel, serum 2023 024 RIOS [facility], [address] [place] [address], [place], [address], 02/26/2024 14:49:28 HbA1c (hemoglob in A1c), blood 2023 024 [email or web address] [facility], [address] [place] [address], [place], [address], 03/04/2024 16:27:37 BMP, serum or plasma 2023 024 [email or web address] [facility], [address] [place] [address], [place], [address], 03/04/2024 16:26:43 hepatic function panel, serum 2023 024 [email or web address] [facility], [address] [place] [address], [place], [address], 03/04/2024 16:26:56 CBC w/ auto diff 2023 024 [email or web address] [facility], [address] [place] [address], [place], [address], 03/04/2024 16:27:27 TSH + free T4, serum 2023 024 [email or web address] [facility], [address] [place] [address], [place], [address], 03/04/2024 16:27:06 PSA, total, serum or plasma 2023 024 [email or web address] [facility], [address] [place] [address] 2, [place], [address], 03/04/2024 16:27:19 urinalysi s, complete 2023 024 [facility], [address] [facility], [place], [address], 03/04/2024 16:27:56 culture, urine 2023 024 OSBORN [facility], [address] [facility], [place], [address], 02/28/2024 11:01:01 Referral urologist referral - Patient continues to have significa nt nocturia despite long-term doxazosin 8 mg daily. All labs are ordered and pending. History of normal PSA. 2023 [facility], [address] [place] [address] [address], [place], [address], 05/21/2024 12:09:20 Procedures lexiscan cardiolit e stress test (PROC) [address] [facility]), [address] [facility] [address], [place], [address], 09/03/2024 14:34:57 Surgeries None recorded. Imaging None recorded. Medication Orders None recorded. Patient TargetsNo targets recorded. Patient Instructions Encounter Date Encounter Id Patient Instructions Last Modified By Organization Details Last Modified Time 02/15/2024 [id number] A healthy lifestyle: care instructions [email or web address] Not available 02/15/2024 12:15:23 Reason for Referral Urologist Referral for Benig n prostatic hyperplasia Patient continues to have significant nocturia despite long-term doxazosin 8 mg daily. All labs are ordered and pending. History of normal PSA. Referring Physician: Sharri Leo, Internal Medicine, Encounter Date: 02/15/2024 Results Created Date Observation Date Name Description Value Unit Range Abnormal Flag Note LastModifiedBy Organization Detail LastModifiedTime Result Notes None recorded. Problems Name Problem SNOMED Code Status Onset Date Resolution Date Notes Provider Name and Address Organization Details Recorded Time Long-term drug therapy Active 2023 NOLVIA Lafleur Attn: Tracy velázquez,[address] [facility], [place], [address], [facility] - [facility] 4 00:04:27 Benign prostatic hyperplasia 684728473 Active 2023 NOLVIA Lafleur Attn: Tracy velázquez,[address] [facility], [place], [address], [facility] - [place] 4 00:05:13 Increased frequency of urination 187777482 Active 2023 NOLVIA Lafleur Attn: Tracy velázquez,[address] [facility], [place], [address], [facility] - [place] 4 00:05:15 Overweight in adulthood with body mass index of 25 or more but less than 30 544539815 Active 2024 Toni May MA null, [place] - [place] 5 11:05:49 Problem Notes None recorded. Procedures Surgical History Date Name Laterality Status Provider Name and Address Organization Details Recorded Time Eye Surgery completed Toni May MA [facility] 02/15/2024 11:46:06 operation on external ear completed Toni May MA [facility] 02/15/2024 11:46:15 Imaging Results None recorded. Procedure Notes None recorded. Medical Equipment None Reported. Allergies No known drug allergies Medications Name Sig Start Date Stop Date Status Note LastModified by Organization Details LastModified Time ketorolac 0.5 % eye drops INSTILL 1 DROP IN RIGHT EYE FOUR TIMES DAILY FOR 4 DAYS 02/14 completed Not Available Not Available Not Available doxazosin 8 mg tablet Take 1 tablet every day by oral route for 10 days. active Not Available Not Available No t Available brimonidine 0.2 % eye drops INSTILL 1 DROP IN RIGHT EYE THREE TIMES DAILY 02/14 completed Not Available Not Available Not Available dorzolamide 22.3 mg-timolol 6.8 mg/mL eye drops INSTILL 1 DROP INTO RIGHT EYE TWICE DAILY active Not Available Not Available No t Available finasteride 5 mg tablet TAKE 1 TABLET BY MOUTH DAILY active Not Available Not Available No t Available Vitals Date Recorded Systolic blood pressure Diastolic blood pressure Provider Name and Address Organization Details Last Updated DateTime 08/29/2024 120 mm[Hg] 70 mm[Hg] NOLVIA Lafleur Attn: Accounting,[address] [place], [address], [facility] 08/29/2024 11:21:38 Date Recorded Body height Body mass index (BMI) Body weight Oxygen saturation Oxygen saturation in Arterial blood by Pulse oximetry Heart rate Respiratory rate Systolic blood pressure Diastolic blood pressure Provider Name and Address Organization Details Last Updated DateTime 5 182.88 cm 28.8 kg/m2 96853.5 8 g 97 % 97 % 76 /min 20 /min 122 mm[Hg] 78 mm[Hg] Toni May MA [facility] 5 11:07:05 Date Recorded Systolic blood pressure Diastolic blood pressure Provider Name and Address Organization Details Last Updated DateTime 02/15/2024 110 mm[Hg] 80 mm[Hg] NOLVIA Lafleur Attn: Accounting,[address] [place], [address], [facility] 02/15/2024 12:18:36 Date Recorded Body weight Respiratory rate Body mass index (BMI) Body height Oxygen saturation Oxygen saturation in Arterial blood by Pulse oximetry Heart rate Systolic blood pressure Diastolic blood pressure Provider Name and Address Organization Details Last Updated DateTime 4 96994.7 3 g 20 /min 29.7 kg/m2 182.88 cm 96 % 96 % 83 /min 126 mm[Hg] 82 mm[Hg] Toni May MA [facility] 4 11:52:15 Social History Question Answer Notes LastModified by Organizat ion Details LastModified Time Tobacco Smoking Status Never Smoker Toni May MA null, [facility] 02/15/2024 11:45:52 Do You Have An Advance Directive? No Information n ot available 02/15/2024 Are You Blind Or Do You Have Difficulty Seeing? Yes Information n ot available 02/15/2024 What Is Your Level Of Caffeine Consumption? None Information not available 02/15/2024 In The 14 Days Before Symptom Onset, Have You Had Close Contact With A Laboratory-confirm ed COVID-19 While That Case Was Ill? No Information n ot available 02/15/2024 In The 14 Days Before Symptom Onset, Have You Had Close Contact With A Person Who Is Under Investigation For COVID-19 While That Person Was Ill? No Information not available 02/15/2024 Have You Been To An Area Known To Be High Risk For COVID-19? No Information not available 02/15/2024 Are You Deaf Or Do You Have Serious Difficulty Hearing? Yes Information not available 02/15/2024 What Type Of Diet Are You Following? REGULAR Information n ot available 02/15/2024 Are There Any Guns Present In Your Home? No Information not available 02/15/2024 What Was The Date Of Your Most Recent Tobacco Screening? 08/29/2024 Information not available 08/29/2024 Do You Use Your Seat Belt Or Car Seat Routinely? Yes Information not available 02/15/2024 Do You Have Smoke And Carbon Monoxide Detectors In Your Home? Yes Information not available 02/15/2024 Do You Use Sunscreen Routinely? No Information not available 02/15/2024 Has Tobacco Cessation Counseling Been Provided? No Information not available 02/15/2024 Sex: Male Functional Status Question Answer Note LastModified by Organizat ion Details LastModified Time Do you use any illicit or recreational drugs? No Information not available 02/15/2024 Do you or have you ever used any other forms of tobacco or nicotine? No Information not available 02/15/2024 What is your level of alcohol consumption? None former-beer, wine Information not available 02/15/2024 Are you currently employed? No retired 6 years Information not available 08/29/2024 Are you able to care for yourself? Yes Information not available 02/15/2024 What is your exercise level? None Information not available 02/15/2024 Mental Status Question Answer Note LastModified by Organization D etails LastModified Time Do you feel stressed (tense, restless, nervous, or anxious, or unable to sleep at night)? [id number] Information not available 02/15/2024 Family History Relationship Description Onset Age of this Age Resolved Age Notes LastModified by Organization Details LastModified Time Father Family history of cancer of colon tcarterma Not available 2023 11:43:22 Brother Diabetes mellitus brothe r had @ young age tcarterma Not available 02/15/2024 11:43:33 Medical History No medical history recorded. Immunizations Vaccine Type Date Status Note Provider Nam e and Address Organization Details Recorded Time Tdap 5 completed LEANDER [place], [place] - [place] 02/15/2024 11:46:34 Influenza, split virus, trivalent, preservative 5 completed LEANDER [place], [place] [facility] 02/15/2024 11:46:34 Influenza, split virus, trivalent, PF 6 completed LE[place]ER [place] [facility] 02/15/2024 11:46:34 Influenza, split virus, quadrivalent, PF 8 completed LEANDER [place] [facility] 02/15/2024 11:46:34 Past Encounters Encounter ID Performer Location Encounter Start Date Encounter Closed Date Diagnosis/Indication Diagnosis SNOMED-CT Code Diagnosis ICD10 Code Diagnosis Note [id number] Anastacio Cline MD [facility] [place] [address] [place] [address] 02/15/2024 11:33:57 02/15/2024 14:41:47 Overweight 958560714 E66.3 discussed healthy diet, exercise, controllin g carbohydra nani and added sugars in the diet Body mass index 25-29 - overweight 924078556 Z68.29 BMI is 29.7 Benign pro static hyperplasia 913008881 N40.1 Refer formally to Urology for thorough evaluation into his current state of BPH with doxazosin 8 mg daily long-term use. Still a significan t amount of nocturia that he is having. Cholesterol screening 27 0728521 Z13.220 Fasting lipid panel is due Blood gluc ose outside reference range 748132369 R73.09 Screening A1c ordered for diabetes risk assessment Long-term drug therapy 365203789 Z79.891 All routine labs are due fasting Screening for malignant neoplasm of prostate 778721027 Z12.5 Annual PSA is due Increased frequency of urination 418134551 R35.0 Check urinalysis with culture with increased frequency of urination [id number] Anastacio Cline MD [facility] [place] [facility] [address] [place] [address] 08/29/2024 10:39:35 08/29/2024 11:30:17 Overweight in adulthood with body mass index of 25 or more but less than 30 974988860 E66.3 Z68.28 BMI is 28.8 Benign pro static hyperplasia 266474432 N40.1 pt did see urology, given finasterid e. Blood gluc ose outside reference range 555753202 R73.09 Due for updated A1c again in February. Cholesterol screening 27 4478702 Z13.220 Fasting lipid panel is due in February Long-term drug therapy 539824032 Z79.891 All routine labs are due fasting for February Dyspnea on exertion 6084 5006 R06.09 Refer for Lexiscan Cardiolite stress testing to rule out coronary artery disease as a cause of newer onset dyspnea on exertion that he is noting with exercise, extended walking and hunting. Health Concerns Section Related Observation LastModified by Organization Detai ls LastModified Time None Recorded Concern Status LastModified by Organization Details LastModified Time None Recorded Advance Directives Directive N: Payers Encounter Date Sequence Insurance Name Policy Number Policy Summers Covered Member ID Summers Member ID Guarantor Name 02/15/2024 1 [employer] (MEDICARE REPLACEMENT/ ADVANTAGE - PPO) [id number] Barrington Martinez [id number] Barrington Martinez 08/29/2024 1 [employer] (MEDICARE REPLACEMENT/ ADVANTAGE - PPO) [id number] Barrington Martinez [id number] Barrington Martinez Notes Date Note Type Note Provider Name and Address Organization Details Recorded Time 02/15/2024 text/html Patient has a hi story of BPH and which he has been taking doxazosin 8 mg daily for several years. He does have significant nocturia with several episodes of getting up at night to urinate. He does not have current urologist. Patient also has a history of slightly elevated glucose just above normal A1c range. Patient is due for all annual labs NOLVIA Lafleur Attn: Accounting,[address] [place], [address], [facility] - [facility] 02/26/2024 00:05:36 08/29/2024 text/html DyspneaReported bypatient.Quality:dys pnea;can't catch breath Severity:moderate Duration:for weeks Onset/Timing:daily Context:with activity Alleviating Factors:relieved with rest Aggravating Factors:activity Associated Symptoms:no chest pain; no palpitations; no orthopnea; no PND; no fever; no chills; no wheezing; no sputum production; no hemoptysis; no dyspepsia;decrease in exercise capacity Patient has a history of BPH and which he has been taking doxazosin 8 mg daily for several years. He does have significant nocturia with several episodes of getting up at night to urinate. He does not have current urologist. Patient also has a history of slightly elevated glucose just above normal A1c range. Patient is due for all annual labs NOLVIA Lafleur Attn: Accounting,[address] [place], [address], [facility] - [facility] 09/03/2024 13:27:56
== END 2024-09-26 07:31 | disposition home or self-care (01) ==
PROVIDERS: PCP Physician Assistant; Visit Provider Physician Assistant
DX: R06.09 Other forms of dyspnea (principal)
CPT/HCPCS: 78452; 93017; A9502; J2785